=== PATIENT | male | born 1930 | race Caucasian/White ===

== ENCOUNTER 2019-02-18 11:19 | Inpatient (IN) ==
[2019-02-18] MEDS ORDERED: ZOFRAN ODT PO ONE (11:49)
--- NOTE | 2019-02-18 12:35 | Diag Imaging Result Doc PS360 ---
CHEST-2 VIEWS - 02/18/2019 INDICATION: sob COMPARISON: 01/03/2016 FINDINGS: Stable sternotomy wires. Heart size and pulmonary vascularity is top normal. There are some ill-defined infiltrate in the right upper lobe and lingula. There is COPD. IMPRESSION: Bilateral bronchopneumonia. COPD. Electronically signed by Donald Brennan 02/18/2019 12:33 PM
[2019-02-18] MEDS ORDERED: NS 1,000 ML IV ONE (12:38)
[2019-02-18] MEDS ORDERED: ROCEPHIN 1 GM in NS 50 ML IV ONE (12:39)
[2019-02-18] MEDS ORDERED: ZITHROMAX 500 MG/NS 500 MG/250 ML IVPB IV ONE (12:39)
[2019-02-18] MEDS ORDERED: CARDIZEM IV ONE (12:41)
[2019-02-18 13:44] LABS: HEMOGLOBIN 12.8 g/dL (14.0-18.0); RBC 4.16 XMIL (4.7-6.1); WBC 12.07 X1000 (4.8-10.8)
[2019-02-18 13:45] LABS: BASO# 0.02 X1000 (0.0-0.2); BASO% 0.2 % (0.0-0.8); EOS# 0.01 X1000 (0.0-0.7); EOS% 0.1 % (0.0-10.0); HEMATOCRIT 37.9 % (42.0-52.0); IMM GRAN# 0.03 X1000 (0.0-0.04); IMM GRAN% 0.2 % (0.0-0.5); LYMPH# 0.75 X1000 (1.2-3.4); LYMPH% 6.2 % (20.5-51.1); MCH 30.8 PG (27-31); MCHC 33.8 g/dL (33-37); MCV 91.1 FL (81-99); MONO# 1.23 X1000 (0.11-0.59); MONO% 10.2 % (1.7-9.3); MPV 10.7 FL (7.4-10.4); NEUT# 10.03 X1000 (1.4-6.5); NEUT% 83.1 % (42.2-75.2); PLT 156 X1000 (130-400); RDW 14.5 % (11.5-14.5)
[2019-02-18 14:11] LABS: ALB/GLOB RATIO 1.1; ALBUMIN 3.7 g/dL (3.5-5.0); CALCIUM 8.8 mg/dL (8.8-10.2); CREATININE 1.4 mg/dL (0.7-1.2); POTASSIUM 4.6 mmol/L (3.5-5.1); TOTAL BILIRUBIN 1.26 mg/dL (0.20-1.00); TOTAL PROTEIN 7.1 g/dL (6.3-8.3)
--- NOTE | 2019-02-18 14:44 | PROVIDER DOCUMENTATION ---
This chart was entered by Quin Ruiz Scribe, acting as scribe for Kleber Gautam MD. HPI-General Adult - General Chief Complaint: General Adult Stated Complaint: ABD PAIN,VOMITING,COUGH Time Seen by Provider: 02/18/19 11:45 Source: patient Allergies/Adverse Reactions: Patient Allergies Allergy/AdvReac Type Severity Reaction Status Date / Time No Known Allergies Allergy Verified 12/16/15 10:05 Home Medications: Home Medication List Medication Instructions Recorded Confirmed Last Taken Type Levothyroxine [Synthroid] 75 microgm PO DAILY 12/16/15 01/03/16 01/02/16 19:00 History Ranitidine [Zantac] 150 mg PO BID PRN 12/16/15 12/16/15 12/16/15 07:00 History Digoxin [Lanoxin] 125 microgm PO DAILY #30 tablet 12/20/15 01/03/16 01/03/16 07:00 Rx Allopurinol [Zyloprim] 100 mg PO DAILY #0 tablet 01/07/16 Unknown Rx Amoxicillin/Potassium Clav 1 each PO BID #10 tablet 01/07/16 Unknown Rx [Augmentin 875-125 Tablet] Ergocalciferol (Vitamin D2) 50,000 unit PO Q7D #8 capsule 01/07/16 Unknown Rx [Vitamin D] Finasteride [Proscar] 5 mg PO DAILY #30 tablet 01/07/16 Unknown Rx Rivaroxaban [Xarelto] 20 mg PO WSUPPER #30 tablet 01/07/16 Unknown Rx Tamsulosin [Flomax] 0.4 mg PO QHS #0 capsule 01/07/16 Unknown Rx - History of Present Illness -Gen Adult Nature of Presenting Problems: 88yom presents to ED cc nausea, vomiting, cough and doesn't feel well. Pt reports he ate too much late last night and woke up this morning and vomited. Pt also reports he had recent URI and just finished ABT. Pt denies pain. Pt is afrebrile and nontoxic on exam. Location of Pain/Injury: reports: generalized Pain Radiation: reports: no radiation Quality of Pain: reports: aching Onset/Duration: reports: this morning Timing: reports: still present Modifying Factors: improves with: nothing Associated Symptoms: reports: nausea, vomiting, weakness Similar Symptoms Previously?: No Recently seen or treated by another doctor?: Yes (saw PCP 02/13/19) Review of Systems - Adult - REVIEW OF SYSTEMS - ADULT Constitutional: reports: see HPI, fatique. denies: chills, fever Eyes: reports: no symptoms reported Ears, Nose, Mouth & Throat: reports: no symptoms reported Cardiovascular: reports: no symptoms reported Respiratory: reports: see HPI, cough. denies: shortness of breath, wheezing Gastrointestinal: reports: see HPI, nausea, vomiting. denies: abdominal pain, c onstipation, diarrhea Genitourinary: reports: no symptoms reported Musculoskeletal: reports: no symptoms reported Integumentary: reports: no symptoms reported Neurological: reports: no symptoms reported Psychiatric: reports: no symptoms reported Endocrine: reports: no symptoms reported Hematologic/Lymphatic: reports: no symptoms reported Allergic/Immunologic: reports: no symptoms reported All Other Systems: Reviewed and Negative Past History - Adult - PAST MEDICAL HISTORY-ADULT Review of Records: reports: Nursing Assessment Review, Medications Reviewed, Social history reviewed & non-contributory. Major Childhood Illnesses: reports: denies history Cardiovascular: reports: CAD, HTN, hyperlipidemia Respiratory: reports: denies history Gastrointestinal: reports: GERD Obstetrical/Gynecological: reports: denies history Genitourinary: reports: denies history Musculoskeletal: reports: denies history Neurological: reports: denies history Psychiatric: reports: denies history Endocrine/Immune: reports: denies history Other Conditions: reports: denies history - PRIOR SURGERIES/PROCEDURES Surgical/Procedure History: reports: CABG - PRIOR HOSPITALIZATIONS Prior Hospitalizations: reports: none - IMMUNIZATION STATUS Childhood Immunizations: See Nurse Assessment Flu Vaccine: See Nurse Assessment - FAMILY HISTORY Family History: reviewed, not pertinent Physical Exam-General - PHYSICAL EXAM-ADULT Initial Vital Signs Reviewed: Yes - CONSTITUTIONAL General Appearance: appears well, alert, no apparent distress. negative: anxious, combative - EYES Eyes: PERRL/EOMI, pink conjunctivae. negative: meningismus, pale conjunctivae, photophobia - HEAD, EARS, NOSE, MOUTH & THROAT HENMT: normocephalic/atraumatic, moist mucous membranes, normal ENT inspection, hearing deficit. negative: angioedema - NECK Neck: non-tender, full range of motion, supple, normal inspection. negative: C- spine tenderness - RESPIRATORY Respiratory: chest non-tender, lungs clear, normal breath sounds, no pleuratic chest pain, no respiratory distress, no accessory muscle use. negative: crackles, rales, rhonchi, stridor, wheezing - CARDIOVASCULAR Cardiovascular: normal peripheral pulses, regular rate, rhythm, no edema, no gallop, no JVD, no murmur. negative: bradycardia, tachycardia - GASTROINTESTINAL (ABDOMEN) Abdominal Exam: normal bowel sounds, non tender, soft, no organomegaly, no pulsatile mass. negative: distended, guarding, rigid, rebound, tenderness, hernia, mass - LYMPHATIC Lymphatic: no adenopathy. negative: striations - MUSCULOSKELETAL Extremity: normal range of motion, non-tender, normal gait, normal inspection, no pedal edema, no calf tenderness, normal capillary refill, pelvis stable. negative: deformity, swelling - SKIN Integumentary: normal color, normal turgor, warm/dry. 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 negative: facial droop, focal weakness - PSYCHIATRIC Psych/Mental Status: normal mood/affect, normal thought content, normal thought process, oriented x 3. negative: disoriented x 3, anxious, disheveled, depressed affect Progress - PLAN OF CARE/RESULTS Progress/Plan/Lab Results: Vital Signs - 8 hr 02/18/19 11:33 Temperature 99.4 F Pulse Rate 119 H Respiratory Rate 18 Blood Pressure 109/65 O2 Sat by Pulse Oximetry 96 Result Diagrams: 02/18/19 13:25 02/18/19 13:25 - REASSESSMENT Reassessment #1 Time Reassessed: 14:43 Status: improving (SYMPTOMS IMPROVING. NO CHEST PAIN OR SOB IN ER. HR 78 AFIB. DISCUSSED WITH HOSPITALIST WILL ADMIT) - EKG 1 Time of EKG reading by physician:: 12:40 EKG Read and Signed by:: Kleber Gautam EKG Interpretation (*Must complete 3 of following elements*): Abnormal (inferior infarct age undetermined) Rate: 140 Rhythm: Atrial fibrillation w/rvr Interior: left ST Wave: normal 2 Time of EKG reading by physician:: 14:37 EKG Read and Signed by:: Kleber Gautam Rate: 78 Rhythm: atrial fibrillation Interior: left QRS: PVC's ST Wave: non-specific ST changes - XRAY 1 XRAY: Bilateral XRAY Study: Chest Impression: See EMR Report (IMPRESSION: Bilateral bronchopneumonia. COPD. Electronically signed by Donald Brennan 02/18/2019 12:33 PM) Departure - Departure Date of Disposition Decision: 02/18/19 Time of Disposition Decision: 14:42 DIAGNOSIS: Rapid atrial fibrillation Pneumonia Qualifiers: Pneumonia type: due to unspecified organism Laterality: bilateral Disposition: ADMITTED INPATIENT 09 Certified Medical Emergency: Emergent Condition: Fair Additional Freetext Instructions: ED Follow Up Instructions: You have been treated by a care provider in the Emergency Department. These instructions are being provided to you so you can have an understanding of how to care for yourself upon discharge. Upon discharge from the Emergency Department, you are responsible for making arrangements for follow-up care by a physician of your choice. Take all prescribed medications as directed. Return to the Emergency Department immediately for any new or worsening symptoms. You may call the Physician Referral phone number at [phone] to obtain a list of Physicians who are taking new patients. Referrals and Follow-Ups: Kapil Marroquin MD [Primary Care Provider] - - Critical Care Note This patient required my direct & personal management of CC.: No Attestation - Physician/ ROXANN Attestation Patient care was provided by Advanced Practice Provider:: No The physician spent face to face time with patient:: Yes Advanced Practice Provider documentation review:: Supervising physician onsite and consulted in the evaluation and care of this patient. The physician did have a face to face encounter with the patient. This chart was documented by the indicated scribe, (Quin Ruiz Scribe) and accurately reflects the services I performed and decisions made by me, Kleber Gautam MD, as attested by the provider's signature.
[2019-02-18] MEDS ORDERED: TYLENOL PO PRN (15:08)
[2019-02-18] MEDS ORDERED: VITAMIN D PO SCH (15:52)
[2019-02-18] MEDS ORDERED: ZOFRAN IV PRN (15:52)
[2019-02-18] MEDS ORDERED: ZANTAC PO PRN ×2 (15:52→16:15)
[2019-02-18] MEDS ORDERED: DUONEB (A & A) INH SCH ×2 (16:00)
--- NOTE | 2019-02-18 16:24 | EKG Report ---
Test Performed on : 02/18/2019 12:34:01 PM Test Reason : tachy Blood Pressure : / mmHG Vent. Rate : 140 BPM Atrial Rate : 083 BPM P-R Int : 000 ms QRS Dur : 102 ms QT Int : 264 ms P-R-T Axes : 000 -35 032 degrees QTc Int : 403 ms Atrial fibrillation. with rapid ventricular response. Left axis deviation Inferior infarct , age undetermined Abnormal ECG When compared with ECG of 03-JAN-2016 16:17, Vent. rate has increased BY [address] less depressed in Anterior leads Nonspecific T wave abnormality, improved in Inferior leads Nonspecific T wave abnormality, improved in Lateral leads Unconfirmed Result
[2019-02-18] MEDS: LANOXIN PO SCH (16:25)
[2019-02-18] MEDS: NS 1,000 ML IV SCH (16:25)
--- NOTE | 2019-02-18 16:28 | EKG Report ---
Test Performed on : 02/18/2019 2:32:46 PM Test Reason : TACHY Blood Pressure : / mmHG Vent. Rate : 078 BPM Atrial Rate : 078 BPM P-R Int : 000 ms QRS Dur : 104 ms QT Int : 372 ms P-R-T Axes : 000 -30 019 degrees QTc Int : 424 ms Atrial fibrillation. with premature ventricular or aberrantly conducted complexes. Left axis deviation Nonspecific ST abnormality Abnormal ECG When compared with ECG of 18-FEB-2019 12:34, (Unconfirmed) Vent. rate has decreased BY 62 BPM Unconfirmed Result
[2019-02-18] MEDS: DUONEB (A & A) INH SCH ×3 (16:53→22:56)
[2019-02-18] MEDS ORDERED: XARELTO PO SCH (17:00)
[2019-02-18] MEDS ORDERED: COLCRYS PO PRN (17:06)
[2019-02-18] MEDS: MUCOMYST 20% INH SCH (19:26)
[2019-02-18] MEDS: FLOMAX PO SCH ×2 (19:54→20:04)
[2019-02-18] MEDS: LOPRESSOR PO SCH ×2 (19:54→20:04)
--- NOTE | 2019-02-19 01:59 | HISTORY AND PHYSICAL ---
MICROBIOLOGY TECHNOLOGIST: Dr. Kapil Marroquin. CHIEF COMPLAINT: Fatigue. HISTORY OF PRESENT ILLNESS: This is an 88-year-old male who presents to the ER today with past medical history of atrial fibrillation, hypertension, hyperlipidemia, hypothyroidism, iron deficiency anemia, gout, significant history for quadruple bypass surgery at [facility]. The patient states that he started feeling sick about Wednesday and last night he had difficulty eating and when he woke up this morning he did not feel well so he asked his son to bring him to the ER today. 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 The patient presented to the ER today. Heart rate in the 130s, atrial fibrillation with RVR. The patient does have a past medical history of atrial fibrillation. The patient takes home medications for his atrial fibrillation, metoprolol and digoxin. The patient is also on Xarelto for his atrial fibrillation for anticoagulation. The patient denies any chest pain at the present time. States that he is a little short of breath. He has generalized fatigue all over. He denies any cough or any sputum production. The patient was given some IV fluid hydration in the ER. Patient states he is feeling a little bit better. The patient was also given antibiotics in the ER. Chest x-ray done in the ER shows bilateral bronchopneumonia and COPD. Laboratory findings in the ER, white blood cell count is 12.07. Sodium count is a little low at 135, creatinine is 1.4. ProBNP is 6799. Plasma lactate was normal in the ER at 1.70. Heart rate at this present time is 67 and does present to be atrial fibrillation on the monitor but at a controlled rate. The patient was given Cardizem in the ER IV push and this has seemed to control his rate at the time. PAST MEDICAL HISTORY: Atrial fibrillation, hypertension, hyperlipidemia, hypothyroidism, iron deficiency anemia, gout, COPD, coronary artery disease, and hearing loss wears hearing aids. PAST SURGICAL HISTORY: Quadruple bypass surgery at [facility]. FAMILY HISTORY: Son is at the bedside. He does not know much about patient's family history. Patient states his father at a young age but does not know what for. SOCIAL HISTORY: The patient quit smoking 33 years ago. He does drink 1 to 2 beers a night. He denies any drug abuse. ALLERGIES: No known drug allergies. MEDICATIONS: Atorvastatin 10 mg p.o. daily, colchicine 0.6 mg p.o. daily p.r.n., digoxin 125 mcg p.o. daily, ferrous sulfate 325 mg p.o. daily, Proscar 5 mg p.o. daily, folic acid 1 mg 5 tablets p.o. daily, levothyroxine sodium 88 mcg daily, losartan potassium 25 mg p.o. daily, metoprolol 50 mg 1/2 tablet p.o. b.i.d., Zantac 150 mg p.o. daily, Xarelto 15 mg p.o. with supper, Flomax 0.4 mg p.o. daily. LABORATORIES AND DIAGNOSTICS: White blood cell count 12.07, hemoglobin 12.8, hematocrit 37.9, platelet count 156,000. Sodium 135, potassium 4.6, carbon dioxide 19, BUN is 20, creatinine is 1.4, estimated GFR is 48, glucose is 128, calcium is 8.8, total bilirubin is 1.26, AST 23, ALT is 13, alkaline phosphatase is 120. Troponin is less than 0.01. ProBNP is 6799. Plasma lactate is 1.7. TSH is 0.17. Chest x-ray shows bilateral bronchopneumonia and COPD. EKG done at 12:30 in the ER shows atrial fibrillation with RVR with a rate of 140 beats per minute. EKG done 2 hours later shows atrial fibrillation with aberrantly conducted complexes. The rate is now 78. REVIEW OF SYSTEMS: A 12 point review of systems has been performed and all are negative except what is stated above in HPI. PHYSICAL EXAMINATION: VITAL SIGNS: Temperature 98.0 degrees, pulse rate 67, respiratory rate 20, blood pressure 132/91, O2 saturation is 93% on 3 L nasal cannula. Weight 135 pounds. Height 5 feet 7 inches. GENERAL: This is an 88-year-old male who is lying in the ER stretcher. He is in no acute distress at present time. Patient is very hard of hearing and does not have hearing aids in at this time. HEENT: Atraumatic, normocephalic. Pupils are equal, round, reactive to light. Mucous membranes are dry. NECK: Supple. No lymphadenopathy. Trachea is midline. No JVD. CARDIOVASCULAR: Irregular rate and rhythm. No murmurs, gallops, or rubs appreciated. S1, S2. Atrial fibrillation noted on the monitor. RESPIRATORY: Lung sounds are clear with equal chest excursion. Respirations are nonlabored with no accessory muscle usage. GASTROINTESTINAL: Abdomen is flat, nontender, nondistended. Bowel sounds are present x4. NEUROLOGIC: Cranial nerves 2-12 intact. The patient is awake, alert, and oriented. Patient is very hard of hearing, but able to answer all questions appropriately and follow all commands. MUSCULOSKELETAL: Full distal strength noted. No abnormality of gait or deformities. EXTREMITIES: No clubbing. No cyanosis. No edema. DP and PT pulses are present and palpable. SKIN: Warm, dry, and intact with no rashes, bruises, or diaphoresis noted. ASSESSMENT AND PLAN: 1. Atrial fibrillation with rapid ventricular response. His rate is controlled at the present time. We will admit this patient to the CIC unit. We will place him on threat monitoring analyst. We will restart all of his home medications including his anticoagulation. 2. Pneumonia and COPD. We will start this patient on IV fluid hydration and start this patient on antibiotics of Rocephin and azithromycin. Patient has already received a dose in the ER. We will resume these medications. We will repeat his chest x-ray in the morning. I have also started him on breathing treatments every 4 hours. 3. Hypertension. We have placed this patient back on his home medications for his hypertension. 4. Hyperlipidemia. We placed him back on his cholesterol medications. 5. Hypothyroidism. We will place this patient back on his Synthroid. 6. Iron deficiency anemia. Place him back on his home medications for his anemia. 7. Gout. I will place this patient back on his gout medication. We will admit this patient to the CIC unit and recheck labs in the morning. Recheck chest x- ray in the morning and as noted above I have started him on IV antibiotics, breathing treatments, and restarted his atrial fibrillation medications per his home doses. Dictated by CARLOTTA Cueto for Ari Amor MD Addendum: Patient seen and examined by myself. Agree with CARLOTAT note. It reflects my assessment and plan. Patient is being admitted to hospital for bilateral pneumonia that has most likely triggered his chronic atrial fibrillation to have a RVR. Will start Rocephin and Zithromax, Duoneb and will place him on his metoprolol. If cardizem drip needed it will be provided. Will monitor patient closely. cc: Ari Amor MD [facility] N[facility]SING FACILITYPriscilla
[2019-02-19] MEDS: DUONEB (A & A) INH SCH ×6 (03:07→23:15)
[2019-02-19] MEDS: NS 1,000 ML IV SCH (03:34)
[2019-02-19] MEDS: SYNTHROID PO SCH ×2 (05:55→06:04)
[2019-02-19 05:57] LABS: BASO# 0.02 X1000 (0.0-0.2); BASO% 0.2 % (0.0-0.8); EOS# 0.01 X1000 (0.0-0.7); EOS% 0.1 % (0.0-10.0); HEMATOCRIT 31.4 % (42.0-52.0); HEMOGLOBIN 10.4 g/dL (14.0-18.0); IMM GRAN# 0.02 X1000 (0.0-0.04); IMM GRAN% 0.2 % (0.0-0.5); LYMPH# 1.23 X1000 (1.2-3.4); LYMPH% 14.8 % (20.5-51.1); MCH 30.9 PG (27-31); MCHC 33.1 g/dL (33-37); MCV 93.2 FL (81-99); MONO# 0.83 X1000 (0.11-0.59); MPV 10.2 FL (7.4-10.4); NEUT# 6.19 X1000 (1.4-6.5); NEUT% 74.7 % (42.2-75.2); PLT 130 X1000 (130-400); RBC 3.37 XMIL (4.7-6.1); RDW 14.8 % (11.5-14.5)
[2019-02-19] MEDS ORDERED: SYNTHROID PO SCH (07:00)
--- NOTE | 2019-02-19 07:29 | Diag Imaging Result Doc PS360 ---
CHEST-PORTABLE - 02/19/2019 INDICATION: Pneumonia COMPARISON: 02/18/2019 FINDINGS: Lung volumes are much lower. There is significant worsening ill-defined infiltrate in the right midlung and lung base, mainly in the right lower lobe. Stable patchy infiltrate in the left lung base. Stable cardiomegaly. No large pleural effusion. IMPRESSION: Much lower lung volumes. Worsening bibasilar infiltrates right greater than left concerning for pneumonia or aspiration. Electronically signed by Donald Brennan 02/19/2019 7:26 AM
[2019-02-19 07:31] LABS: AGAP 13; BUN 24 mg/dL (8-22); CALCIUM 7.4 mg/dL (8.8-10.2); CHLORIDE 109 mmol/L (98-107); COSMO 285; CREATININE 1.3 mg/dL (0.7-1.2); GLUCOSE 124 mg/dL (70-104); SODIUM 140 mmol/L (136-145); TCO2 18 mmol/L (25-35)
[2019-02-19] MEDS: MUCOMYST 20% INH SCH ×2 (07:41→19:44)
[2019-02-19] MEDS: LANOXIN PO SCH (08:34)
[2019-02-19] MEDS: LOPRESSOR PO SCH ×2 (08:34→20:38)
[2019-02-19] MEDS: PROSCAR PO SCH (08:34)
[2019-02-19] MEDS: FOLIC ACID PO SCH (08:34)
[2019-02-19] MEDS: COZAAR PO SCH (08:35)
[2019-02-19] MEDS: FERROUS SULFATE PO SCH (08:35)
[2019-02-19] MEDS: ZYLOPRIM PO SCH (08:35)
[2019-02-19] MEDS ORDERED: CARDIZEM 125 MG/D5W 125 MG/125 ML IVPB IV SCH (08:45)
--- NOTE | 2019-02-19 08:51 | PROGRESS NOTE ---
DATE: 02/19/2019 SUBJECTIVE: The patient reports breathing better. According to nursing staff, heart rate has been well controlled, and almost all the time less than 100, according to telemetry. OBJECTIVE: Vital Signs: Temperature 98.0 degrees, heart rate 84, respiratory rate 18, blood pressure 116/53, O2 saturation 100% on 2 L nasal cannula. General: This is an 88-year-old male, lying in bed in no acute distress. Cardiovascular: S1, S2 heard. Irregularly irregular, but no murmurs, gallops, or rubs noted. Respiratory: Decreased breath sounds globally, with minimal coarse breath sounds noted in both pulmonary bases. The patient is not using any accessory muscles or having work of breathing. Abdomen: Soft. Nontender to palpation. Bowel sounds present. No organomegaly. Extremities: No clubbing, cyanosis, or edema. Peripheral pulses present in both legs. Neurological: The patient is alert and oriented x3. Moves 4 extremities. LABORATORY DATA: White cell count 8.3, hemoglobin 10.4, hematocrit 31.4, platelets 130,000. BMP reveals creatinine 1.3, with glucose 124, calcium 7.4. TSH 0.17. ASSESSMENT AND PLAN: 1. Atrial fibrillation with rapid ventricular response. That has been well controlled. I think the pneumonia has triggered his uncontrolled heart rate, but now is much better. We have restarted his home medication, including his anticoagulation. 2. Bilateral pneumonia. The patient is on Rocephin and azithromycin, day #2 for both antibiotics. I think the patient is getting much better. X-ray this morning just confirmed this finding. He is also on DuoNeb every 4 hours scheduled. 3. Hypothyroidism. We have checked TSH, and we found that it is low, so we are going to decrease the dose of Synthroid from 88 to 50 mcg by mouth daily. 4. Hyperlipidemia. Will continue with home medications. 5. Hypertension. Blood pressure is under control. Will continue with the same management. 6. Iron-deficiency anemia. The patient is on iron pills. Will restart those. 7. History of gout. The patient has been placed back to his gout medication. 8. Disposition. I think this patient is much more stable. The reason why he was sent to [facility] was the elevated heart rate, but has been controlled, just controlling the infection. We have restarted all his home medications for that condition, so, at this point, I think he can be transferred to a regular room. Addendum: I was informed patient started to have heart rate in the range of 180 and 190. Cardizem drip will be started. Will monitor patient closely. cc: Ari Amor MD MTDD
--- NOTE | 2019-02-19 11:09 | EKG Report ---
Test Performed on : 02/19/2019 08:40:20 AM Test Reason : Increased HR Blood Pressure : / mmHG Vent. Rate : 173 BPM Atrial Rate : 093 BPM P-R Int : 000 ms QRS Dur : 156 ms QT Int : 256 ms P-R-T Axes : 000 -30 080 degrees QTc Int : 434 ms Atrial fibrillation. with rapid ventricular response. Left axis deviation Nonspecific intraventricular block Nonspecific ST and T wave abnormality Abnormal ECG When compared with ECG of 18-FEB-2019 14:32, (Unconfirmed) Vent. rate has increased BY 95 BPM QRS duration has increased Nonspecific T wave abnormality now evident in Lateral leads Confirmed by Teo Armijo MD ([id number]) on 02/19/2019 9:21:59 PM
[2019-02-19] MEDS ORDERED: LOPRESSOR PO ONE (12:59)
--- NOTE | 2019-02-19 14:24 | CONSULTATION ---
DATE OF CONSULTATION: 02/19/2019 IMPRESSION: 1. Chronic atrial fibrillation with increased ventricular rate response in the setting of acute noncardiac illness. 2. Suspected pneumonia/pneumonitis. 3. Atherosclerotic coronary disease with previous coronary bypass surgery. The patient continues without angina. 4. Hypertension. 5. Hyperlipidemia. RECOMMENDATIONS: 1. Gently increase metoprolol. 2. Check digoxin level and adjust. 3. Continue intravenous Cardizem until heart rate better controlled with adjustments. 4. Treat for pneumonia/pneumonitis as you are doing. HISTORY: This 88-year-old white male with past history of previous coronary bypass surgery, chronic atrial fibrillation, hypertension, hyperlipidemia, and COPD, was admitted with cough and chest congestion. He was found to have atrial fibrillation with rapid ventricular rate despite current regimen for rate control. He was also found to have abnormal chest x- ray suggesting bilateral pneumonia. Because of elevated heart rate, Cardiology was consulted. He has been started on intravenous Cardizem to improve rate control, and this seems to be working. He relates having an illness with minimally productive cough and sinus congestion a few weeks ago. This seemed to have transiently improved, but then has re-emerged over the week prior to surgery. He had a late evening meal at [employer], and relates that after this, he started having some nausea and vomiting because he ate too late at night. Presumably, this is related to gastroesophageal reflux. He started feeling fatigue, and continued with minimally productive cough. He came to the emergency room for evaluation, where chest x-ray suggested bilateral pneumonia, and ECG demonstrated atrial fibrillation with rapid ventricular rate. There has been no angina. PAST MEDICAL HISTORY: 1. Chronic atrial fibrillation. 2. Atherosclerotic coronary disease with previous coronary bypass surgery. 3. Hypertension. 4. Hyperlipidemia. 5. Hypothyroidism. 6. Iron-deficiency anemia. 7. Gout. 8. COPD. 9. Hearing loss. PAST SURGICAL HISTORY: Includes previous coronary bypass surgery. ALLERGIES: No known drug allergies. MEDICATIONS PRIOR TO ADMISSION: As listed. SOCIAL HISTORY: He has history of previous cigarette use, but discontinued this approximately 33 years ago. He drinks 1 to 2 beers nightly. FAMILY HISTORY: Negative for premature coronary disease. REVIEW OF SYSTEMS: Pulmonary: Noncontributory beyond history of present illness. Gastrointestinal: Noncontributory beyond history of present illness. Constitutional: Negative for fever. The remainder of review of systems is negative/noncontributory beyond history of present illness with 14 total systems reviewed. PHYSICAL EXAMINATION: General: This is a pleasant, elderly, white male in no distress. Vital Signs: Blood pressure 120/55, heart rate 78 and irregular with ECG monitor showing atrial fibrillation with controlled rate. Patient currently on intravenous Cardizem. Oxygen saturation 98% on room air. HEENT: Extraocular movements appear intact. Mucous membranes are moist. Neck: Supple. Jugular distention is evident, suggesting elevated central venous pressure. Chest: Fairly clear to auscultation bilaterally. Cardiac: Irregular rate and rhythm without appreciable murmur or gallop. Abdomen: Soft. Bowel sounds are normal. Extremities: Without edema. Neurologic: He is alert and fully oriented. Speech is fluent. He moves all 4 extremities equally well. Skin: Warm dry. Psychiatric: Mood is appropriate. DIAGNOSTIC DATA: A 12-lead EKG demonstrates atrial fibrillation with rapid ventricular rate, left axis deviation (nonspecific), interventricular conduction abnormality, nonspecific ST-T wave abnormality demonstrated, possibly related to heart rate. LABORATORY DATA: Includes a white blood cell count of 8.3, hematocrit 31.4, hemoglobin 10.4, platelet count 130,000. Sodium 140, potassium 4.0, chloride 109, carbon dioxide 18, BUN 24, creatinine 1.3, glucose 124. Troponin T less than 0.01. TSH 0.17. cc: Jarvis Collins MD MTDD
[2019-02-19] MEDS: ROCEPHIN 1 GM in NS 50 ML IV SCH (14:43)
[2019-02-19] MEDS: ZITHROMAX 500 MG/NS 500 MG/250 ML IVPB IV SCH (16:10)
[2019-02-19] MEDS: XARELTO PO SCH (17:34)
[2019-02-19] MEDS: LIPITOR PO SCH (20:38)
[2019-02-19] MEDS: FLOMAX PO SCH (20:38)
[2019-02-20] MEDS: DUONEB (A & A) INH SCH ×6 (03:09→23:39)
[2019-02-20] MEDS: SYNTHROID PO SCH (06:03)
[2019-02-20 06:04] LABS: BASO# 0.03 X1000 (0.0-0.2); BASO% 0.4 % (0.0-0.8); EOS# 0.15 X1000 (0.0-0.7); EOS% 1.9 % (0.0-10.0); HEMATOCRIT 32.7 % (42.0-52.0); HEMOGLOBIN 10.8 g/dL (14.0-18.0); IMM GRAN# 0.03 X1000 (0.0-0.04); IMM GRAN% 0.4 % (0.0-0.5); LYMPH# 1.31 X1000 (1.2-3.4); LYMPH% 16.4 % (20.5-51.1); MCH 30.9 PG (27-31); MCV 93.4 FL (81-99); MONO# 0.88 X1000 (0.11-0.59); MPV 10.8 FL (7.4-10.4); NEUT# 5.58 X1000 (1.4-6.5); NEUT% 69.9 % (42.2-75.2); PLT 147 X1000 (130-400); RDW 14.9 % (11.5-14.5); WBC 7.98 X1000 (4.8-10.8)
[2019-02-20 06:26] LABS: CREATININE 1.5 mg/dL (0.7-1.2); POTASSIUM 5.2 mmol/L (3.5-5.1)
--- NOTE | 2019-02-20 07:25 | Diag Imaging Result Doc PS360 ---
EXAM: CHEST-2 VIEWS 02/20/2019 HISTORY: pulmonary edema TECHNIQUE: PA and lateral chest COMMENT: There is alveolar opacity present in the right middle and lower lobes, the lingula and the left lower lobe. The opacities are slightly worse than on 02/19/2019 despite the relatively better inspiration. There is also apparent loculated fluid in the upper part of the left major fissure. IMPRESSION: Worsened pulmonary edema and/or pneumonia with loculated left pleural effusion. Electronically signed by Valentín Fernandez 02/20/2019 7:22 AM
[2019-02-20] MEDS: MUCOMYST 20% INH SCH ×2 (07:26→19:45)
[2019-02-20] MEDS: LANOXIN PO SCH (08:10)
[2019-02-20] MEDS: FOLIC ACID PO SCH (08:10)
[2019-02-20] MEDS: LOPRESSOR PO SCH ×2 (08:11→21:57)
[2019-02-20] MEDS: COZAAR PO SCH (08:11)
[2019-02-20] MEDS: FERROUS SULFATE PO SCH (08:11)
[2019-02-20] MEDS: ZYLOPRIM PO SCH (08:11)
[2019-02-20] MEDS: LIPITOR PO SCH (08:11)
[2019-02-20] MEDS: PROSCAR PO SCH (08:11)
--- NOTE | 2019-02-20 09:18 | PROGRESS NOTE ---
DATE: 02/20/2019 SUBJECTIVE: The patient reports feeling fine. Reported mile sensation of palpitation on and off last night according to nursing staff. Patient has been started on Cardizem drip in the afternoon but was stopped a few hours later. Cardiology also has increased the dose of metoprolol and by now his heart rate is going up and down when he moves or when he have a breathing treatment. That can go up to 160 and 170. OBJECTIVE: Vital Signs: Temperature 98.2 degrees, heart rate 119, respiratory rate 19, blood pressure 127/60, O2 saturation 96% on room air. General Examination: This is an 88-year-old male, lying in bed, in no acute distress. HEENT: Head is normocephalic, atraumatic. Neck: No JVD noted. No carotid bruits. No lymphadenopathy. No thyromegaly. Cardiovascular: S1, S2 heard. No murmurs, gallops, or rubs. Regular rate and rhythm. Respiratory: Coarse breath sounds noted in both pulmonary bases. Patient is not using any accessory muscles or having work of breathing. Abdomen: Soft a little distended. No organomegaly noted. Bowel sounds present. Extremities: No clubbing, cyanosis, or edema. Peripheral pulses present in both legs. Neurological: Patient is alert, oriented x3. Moves 4 extremities. LABORATORY DATA: White cell count 7.98, hemoglobin 10.8, hematocrit 32.7 platelets 147,000. BMP remarkable for creatinine 1.5 and potassium 5.2. Digoxin level is normal. ASSESSMENT AND PLAN: 1. Chronic atrial fibrillation with rapid ventricular response. I think that has been triggered because of this bilateral pneumonia. He has been on Cardizem drip yesterday. Heart rate is erratic in the range of 110 and 160. It gets worse when patient moves and when he received breathing treatments. At this point, we will continue to monitor this patient. Continue with oral medications to control heart rate. Also, he is on anticoagulation. We will continue to monitor. We will restart Cardizem drip if needed. 2. Bilateral pneumonia. Patient is on Rocephin and azithromycin, day #3 for both antibiotics. We have checked an x-ray today which basically reveals worsening pulmonary edema or pneumonia with loculated left pleural effusion. In that regard, I prefer to order a CT of the thorax without contrast. We will see what it shows. 3. Hypothyroidism. Synthroid has been decreased considering that his TSH has been found low. 4. Hyperlipidemia. We will continue home medications. 5. Hypertension. Blood pressure is under control. We will continue with same management. 6. Iron deficiency anemia. Patient is on iron tablets. We will continue with those. 7. History of gout. We will continue home medications. DISPOSITION: This patient continues to have an erratic heart rate that varies between 100 and 160. At this point. We will continue with current management. I think once his infection is better controlled then his heart will be more stable. In any case it looks like this patient have left loculated pleural effusion. We will check a CT of the chest to see and confirm the diagnosis and we may need to switch antibiotics. cc: Ari Amor MD
--- NOTE | 2019-02-20 09:53 | ECHO REPORT ---
ORDER DATE: 02/18/2019 MEASUREMENTS: Septal thickness 1.1, posterior wall thickness 0.6, left ventricular internal diameter in diastole 4.3, left ventricular internal diameter in systole 3.4, aortic root 3.1, left atrium 4.2. SUMMARY: 1. Fair quality study. 2. Aortic valve is trileaflet and opens normally on 2-dimensional images. Peak gradient across the aortic valve is less than 10 mmHg. Mild mitral annular calcification is demonstrated with mild posteriorly directed mitral regurgitation. Tricuspid and pulmonic valves are without evidence of structural abnormality with [id number] tricuspid regurgitation. The estimated systolic PA pressure by Doppler is 60 to 65 mmHg, suggesting [id number] pulmonary hypertension. The aortic root is normal in size. 3. Normal left ventricular dimensions demonstrated. Estimated left ventricular ejection fraction is approximately 40%. There is akinesis and thinning of the basal and mid inferolateral wall of the left ventricle. Left atrium is mildly enlarged. The right atrium and right ventricle are normal in size with grossly preserved right ventricular systolic function. The left atrium is moderately enlarged on 2-dimensional images, while the right atrium appears mildly enlarged. The right ventricle is normal in size with grossly preserved right ventricular systolic function. 4. No pericardial effusion. 5. Appearance of the inferior vena cava suggests elevated central venous pressure. 6. Atrial fibrillation during study. cc: MD Ari Sue MD
--- NOTE | 2019-02-20 10:28 | Diag Imaging Result Doc PS360 ---
EXAM: CT THORAX W/O CONTRAST INDICATION: left loculated pleural effusion TECHNIQUE: This exam was performed using automated exposure control, adjustment of mA or kV according to patient size, and/or use of iterative reconstruction technique. COMPARISON: CTA chest dated 12/16/2015 FINDINGS: There is moderate to advanced pulmonary emphysema. There is patchy airspace infiltrate involving the right upper lobe, right middle lobe, and right lower lobe consistent with pneumonia. There is milder infiltrate on the left, mainly at the left lung base and the left lower lobe and the lingula. There is a also probably a component of atelectasis at both lung bases. There are bilateral small pleural fluid collections. The collection on the left is at least partially loculated with loculated fluid tracking into the fissure and at the posterior aspect of the left lung posterior to the upper portion of the left lower lobe. The heart is mildly prominent but stable. There are CABG changes. There are a few calcified mediastinal lymph nodes suggesting prior granulomatous disease. There are other somewhat prominent noncalcified lymph nodes that are probably reactive. Limited views of the upper abdomen are essentially unremarkable. IMPRESSION: 1.Pulmonary emphysema. 2.Bilateral multilobar pneumonia, worse on the right. 3.Bilateral small pleural effusions with some degree of loculation on the left. 4.Mild mediastinal lymphadenopathy that is probably reactive. Electronically signed by Aaron Angel 02/20/2019 10:26 AM
[2019-02-20] MEDS: ROCEPHIN 1 GM in NS 50 ML IV SCH (15:49)
[2019-02-20] MEDS: ZITHROMAX 500 MG/NS 500 MG/250 ML IVPB IV SCH (15:49)
[2019-02-20] MEDS: XARELTO PO SCH (18:12)
[2019-02-20] MEDS ORDERED: CARDIZEM CD PO SCH (18:30)
--- NOTE | 2019-02-20 18:35 | CARDIOLOGY PROGRESS NOTE ---
DATE: 02/20/2019 SUBJECTIVE: Patient denies chest discomfort or shortness of breath. He still has some tendency for tachycardia despite recent increase metoprolol. OBJECTIVE: Blood pressure 144/93, heart rate 120 and irregular with ECG monitor showing atrial fibrillation, oxygen saturation 97% on room air. Chest is fairly clear to auscultation. Cardiac exam reveals an irregular rate and rhythm without appreciable murmur, rub, or gallop. There is no evidence of peripheral edema. DIAGNOSTIC STUDIES: Laboratory data includes a white blood cell count 7.9, hematocrit 32.7 hemoglobin 10.8 platelet count 147,000. Sodium 141, potassium 5.2, chloride 110, carbon dioxide 19, BUN 24, creatinine 1.5, glucose 99. Echocardiography demonstrates moderate to severe tricuspid regurgitation with estimated systolic PA pressure of 60 to 65 mmHg suggesting moderate to severe pulmonary hypertension, estimated left ventricular ejection fraction of 40%, akinesis and thinning of the basal and mid inferolateral wall left ventricle consistent with previous infarct. IMPRESSION: 1. Chronic atrial fibrillation with increased ventricular rate response in setting of acute noncardiac illness with suspected pneumonia. Heart rate remains elevated despite increase in metoprolol. 2. Atherosclerotic coronary disease with previous myocardial infarction and previous coronary artery bypass surgery. Estimated left ventricular ejection fraction 40%. Patient continues without angina. 3. Hypertension. 4. Hyperlipidemia. RECOMMENDATIONS: 1. Continue increased dose of metoprolol. 2. Add low-dose long-acting diltiazem. cc: Jarvis Collins MD
[2019-02-20 20:10] LABS: URINE SOURCE CATH
[2019-02-20 20:18] LABS: BILIRUBIN URINE NEGATIVE (NEGATIVE); BLOOD URINE TRACE (NEGATIVE); COLOR YELLOW; GLUCOSE URINE NEGATIVE (NEGATIVE); KETONE URINE NEGATIVE (NEGATIVE); LEUKOCYTES URINE NEGATIVE (NEGATIVE); NITRITE URINE NEGATIVE (NEGATIVE); PH URINE 6.5; PROTEIN URINE 30 mg/dL (NEGATIVE); SP GRAVITY URINE 1.014; TURBIDITY URINE CLEAR (CLEAR); UROBILINOGEN URINE NORMAL (NORMAL)
[2019-02-20 20:20] LABS: UR EPITHELIAL CELLS <10 /HPF (<10); URINE BACTERIA NEGATIVE /HPF; URINE RBC <10 /HPF (<10); URINE WBC <10 /HPF (<10)
[2019-02-20] MEDS: FLOMAX PO SCH (21:57)
[2019-02-20] MEDS: MIRALAX PO SCH (21:58)
[2019-02-20] MEDS: CARDIZEM CD PO SCH (21:58)
[2019-02-21] MEDS: DUONEB (A & A) INH SCH ×6 (03:36→23:14)
[2019-02-21 05:39] LABS: BASO# 0.03 X1000 (0.0-0.2); BASO% 0.4 % (0.0-0.8); EOS# 0.13 X1000 (0.0-0.7); EOS% 1.9 % (0.0-10.0); HEMATOCRIT 31.3 % (42.0-52.0); HEMOGLOBIN 10.3 g/dL (14.0-18.0); IMM GRAN# 0.09 X1000 (0.0-0.04); IMM GRAN% 1.3 % (0.0-0.5); LYMPH# 1.31 X1000 (1.2-3.4); LYMPH% 18.8 % (20.5-51.1); MCH 30.5 PG (27-31); MCHC 32.9 g/dL (33-37); MCV 92.6 FL (81-99); MONO% 10.1 % (1.7-9.3); MPV 10.5 FL (7.4-10.4); NEUT% 67.5 % (42.2-75.2); PLT 159 X1000 (130-400); RBC 3.38 XMIL (4.7-6.1); RDW 14.6 % (11.5-14.5); WBC 6.96 X1000 (4.8-10.8)
[2019-02-21] MEDS: SYNTHROID PO SCH (06:04)
[2019-02-21 06:17] LABS: CALCIUM 7.7 mg/dL (8.8-10.2); CREATININE 1.2 mg/dL (0.7-1.2); POTASSIUM 4.6 mmol/L (3.5-5.1)
[2019-02-21] MEDS ORDERED: VANCOMYCIN IV PER PHARMACY MISC SCH (08:00)
[2019-02-21] MEDS: MUCOMYST 20% INH SCH ×2 (08:31→19:24)
[2019-02-21] MEDS: MIRALAX PO SCH ×2 (09:00→20:52)
[2019-02-21] MEDS: MAXIPIME 1 GM in NS 50 ML IV SCH ×2 (09:00→20:48)
[2019-02-21] MEDS: COZAAR PO SCH (09:01)
[2019-02-21] MEDS: LOPRESSOR PO SCH ×2 (09:01→20:51)
[2019-02-21] MEDS: FOLIC ACID PO SCH (09:01)
[2019-02-21] MEDS: LANOXIN PO SCH (09:01)
[2019-02-21] MEDS: PROSCAR PO SCH (09:01)
[2019-02-21] MEDS: ZYLOPRIM PO SCH (09:01)
[2019-02-21] MEDS: FERROUS SULFATE PO SCH (09:01)
[2019-02-21] MEDS: LIPITOR PO SCH (09:01)
[2019-02-21] MEDS ORDERED: VANCOMYCIN 1.5 GM in NS 250 ML IV ONE (10:00)
--- NOTE | 2019-02-21 10:09 | PROGRESS NOTE ---
DATE: 02/21/2019 SUBJECTIVE: The patient reports feeling fine, breathing better, able to walk around. No palpitations noted. OBJECTIVE: Vital Signs: Temperature 97.9 degrees, heart rate 87, respiratory rate 16, blood pressure 141/68, O2 saturation 96% on room air. General: This is an 88-year-old male, lying in bed in no acute distress. Cardiovascular: S1, S2 heard. No murmurs, gallops, or rubs. Regular rate and rhythm. Respiratory: Coarse breath sounds noted in both pulmonary bases. Patient not using any accessory muscles or having work of breathing. Abdomen: Soft, a little bit distended. Nontender to palpation. Bowel sounds present. No organomegaly. Extremities: No clubbing, cyanosis, or edema. Peripheral pulses present in both legs. Neurological: The patient is alert and oriented x3. Moves all 4 extremities. LABORATORY DATA: White cell count 6.96, hemoglobin 10.3, hematocrit 31.3, platelets 159,000. The BMP reveals normal creatinine with calcium 7.7. ASSESSMENT AND PLAN: 1. Bilateral multilobar pneumonia. This is what we found out on the CT of the chest. The patient clinically is doing fine. Considering this infection, would prefer to go ahead and start broad-spectrum antibiotics, in this case vancomycin and cefepime. Will continue with breathing treatments as well. 2. Atrial fibrillation with rapid ventricular response. Currently, this patient is on Cardizem CD 120 mg by mouth daily, metoprolol 100 mg by mouth twice daily, and also digoxin. I think that rapid ventricular response has been triggered by his infection, but in this case, it is bilateral pneumonia, but it is getting much better. At this point, will continue with the same management. Cardiology is also following this patient. 3. Hypothyroidism. Will continue with the same dose of Synthroid. As we mentioned before, we need to decrease the doses of that considering that TSH has been found low. 4. Hyperlipidemia. Will continue home medications. 5. Iron-deficiency anemia. Will continue with iron tablets. 6. Hypertension. Blood pressure is under control. Will continue with the same medication. 7. Disposition. At this point, will continue to monitor this patient closely here in the [facility]. If heart rate is better controlled tomorrow, will transfer him out of the [facility]. cc: Ari Amor MD
--- NOTE | 2019-02-21 16:46 | PROGRESS NOTE ---
DATE: 02/21/2019 SUBJECTIVE: Patient continues without chest discomfort or shortness of breath. He reports feeling progressively better. OBJECTIVE: Vital signs: Blood pressure 122/46, heart rate 60 and regular, oxygen saturation 97% on room air. Neck: There is no significant jugular venous distention. Chest: Clear to auscultation. Cardiac Exam: Reveals an irregular rate and rhythm without appreciable murmur or gallop. There is no evidence of peripheral edema. LABORATORY DATA: Includes a white blood cell count of 6.96, hematocrit 31.3, hemoglobin 10.3, platelet count 159,000. Sodium 141, potassium 4.6, chloride 112, BUN 24, creatinine 1.2, glucose 94. IMPRESSIONS: 1. Chronic atrial fibrillation. Heart rate better controlled. 2. Currently admitted with suspected pneumonia. Patient appears to be clinically improving. 3. Atherosclerotic coronary disease with previous myocardial infarction, previous coronary bypass surgery, and ischemic cardiomyopathy with a left ventricular ejection fraction of 40%. Patient continues without angina and manifests no signs of congestive heart failure. 4. Hypertension. 5. Hyperlipidemia. RECOMMENDATIONS: 1. Reduce metoprolol to 50 mg p.o. b.i.d. and continue low-dose long-acting diltiazem as well as digoxin. 2. As patient mobilizes, further adjustments may be necessary. cc: Jarvis Collins MD
[2019-02-21] MEDS: XARELTO PO SCH (17:39)
[2019-02-21] MEDS: CARDIZEM CD PO SCH (20:51)
[2019-02-21] MEDS: FLOMAX PO SCH (20:51)
[2019-02-22] MEDS: DUONEB (A & A) INH SCH ×6 (03:40→22:44)
[2019-02-22] MEDS: SYNTHROID PO SCH (06:08)
[2019-02-22 06:17] LABS: BASO# 0.05 X1000 (0.0-0.2); BASO% 0.7 % (0.0-0.8); EOS# 0.21 X1000 (0.0-0.7); EOS% 3.1 % (0.0-10.0); HEMATOCRIT 31.7 % (42.0-52.0); HEMOGLOBIN 10.6 g/dL (14.0-18.0); IMM GRAN# 0.19 X1000 (0.0-0.04); IMM GRAN% 2.8 % (0.0-0.5); LYMPH# 1.26 X1000 (1.2-3.4); LYMPH% 18.5 % (20.5-51.1); MCH 30.9 PG (27-31); MCHC 33.4 g/dL (33-37); MCV 92.4 FL (81-99); MONO# 0.83 X1000 (0.11-0.59); MONO% 12.2 % (1.7-9.3); MPV 10.3 FL (7.4-10.4); NEUT# 4.26 X1000 (1.4-6.5); NEUT% 62.7 % (42.2-75.2); PLT 196 X1000 (130-400); RBC 3.43 XMIL (4.7-6.1); RDW 14.4 % (11.5-14.5)
[2019-02-22 06:44] LABS: ALBUMIN 2.8 g/dL (3.5-5.0); CALCIUM 8.6 mg/dL (8.8-10.2); CREATININE 1.3 mg/dL (0.7-1.2); POTASSIUM 4.8 mmol/L (3.5-5.1)
[2019-02-22] MEDS: MUCOMYST 20% INH SCH ×2 (07:44→19:45)
[2019-02-22] MEDS: PROSCAR PO SCH ×2 (08:34→09:30)
[2019-02-22] MEDS: LOPRESSOR PO SCH ×2 (08:34→21:58)
[2019-02-22] MEDS: MAXIPIME 1 GM in NS 50 ML IV SCH ×2 (08:34→21:58)
[2019-02-22] MEDS: LANOXIN PO SCH (08:34)
[2019-02-22] MEDS: LIPITOR PO SCH (08:34)
[2019-02-22] MEDS: FERROUS SULFATE PO SCH (08:34)
[2019-02-22] MEDS: CARDIZEM CD PO SCH (08:35)
[2019-02-22] MEDS: FOLIC ACID PO SCH (08:35)
[2019-02-22] MEDS: COZAAR PO SCH (08:35)
[2019-02-22] MEDS: ZYLOPRIM PO SCH (08:35)
[2019-02-22] MEDS: MIRALAX PO SCH ×2 (09:30→21:58)
--- NOTE | 2019-02-22 11:41 | PROGRESS NOTE ---
DATE: 02/22/2019 SUBJECTIVE: Patient reports feeling fine. Denies any fever, chills, or difficulty in breathing. OBJECTIVE: Vital Signs: Temperature 97.8, heart rate 85, respiratory rate 15, blood pressure 113/54, and O2 saturation 98% on room air. General: This is an 88-year-old male, lying in bed in no acute distress. Cardiovascular: S1, S2 heard. No murmurs, gallops, or rubs. Regular rate and rhythm. Respiratory: Coarse breath sounds noted in both pulmonary bases. Patient not using any accessory muscles or having work of breathing. Abdomen: Soft and nontender to palpation. Bowel sounds present. No organomegaly. Extremities: No clubbing, cyanosis, or edema. Peripheral pulses present in both legs. Neurological: Patient is alert and oriented x3. Moves all 4 extremities. LABORATORY DATA: Reviewed. ASSESSMENT AND PLAN: 1. Bilateral multilobar pneumonia. We will continue with vancomycin and cefepime. 2. Off both antibiotics. We will continue with the same management. 3. Atrial fibrillation with rapid ventricular rate. Currently, this patient's heart rate is well controlled. He is on digoxin, Cardizem CD 120, and metoprolol has been decreased to 50 mg p.o. b.i.d. We will continue with the same management. 4. Hypothyroidism. We will continue with the same doses of Synthroid. His initial doses that he was using at home has been reduced to 50%. Because of the TSH, that has been found low. 5. Hyperlipidemia. We will continue home medications. 6. Iron-deficiency anemia. We will continue with iron tablets. 7. Hypertension. Blood pressure is under control. 8. Disposition. At this point, patient is much better. If he continues to improve tomorrow, he can be discharged. cc: Ari Amor MD
--- NOTE | 2019-02-22 16:52 | CARDIOLOGY PROGRESS NOTE ---
DATE: 02/22/2019 SUBJECTIVE: Patient reports feeling much better. She denies any chest discomfort or shortness of breath on room air. OBJECTIVE: Blood pressure 113/50, heart rate 63, oxygen saturation 96% on room air. There is no significant jugular venous distension. Chest is clear to auscultation bilaterally. Cardiac exam reveals an irregular rate and rhythm without appreciable murmur, rub, or gallop. There is no evidence of peripheral edema. LABORATORY DATA: Includes a white blood cell count 6.8, hematocrit 31.7, hemoglobin 10.6, platelet count 196,000. Sodium 140, potassium 4.8, chloride 111, carbon dioxide 28, BUN 22, creatinine 1.3, glucose 99. IMPRESSION: 1. Chronic atrial fibrillation. Heart rate better controlled on current regimen. 2. Suspected pneumonia. Patient clinically improving. 3. Atherosclerotic coronary artery disease with previous myocardial infarction, previous coronary bypass surgery, and ischemic cardiomyopathy with left ventricular ejection fraction 40%. Patient continues without angina. Manifests no signs of congestive heart failure. 4. Hypertension. 5. Hyperlipidemia. RECOMMENDATIONS: Continue current cardiovascular regimen unchanged. If patient starts to manifest tendency for bradycardia, diltiazem or digoxin might be discontinued. cc: Jarvis Collins MD
[2019-02-22] MEDS: XARELTO PO SCH (17:50)
[2019-02-22] MEDS: FLOMAX PO SCH (21:58)
[2019-02-22] MEDS ORDERED: VANCOMYCIN 1.2 GM in NS 250 ML IV SCH (22:00)
[2019-02-23] MEDS: DUONEB (A & A) INH SCH ×2 (03:44→07:26)
[2019-02-23] MEDS: SYNTHROID PO SCH ×2 (05:58→06:00)
[2019-02-23 06:27] LABS: BASO# 0.02 X1000 (0.0-0.2); BASO% 0.3 % (0.0-0.8); EOS# 0.16 X1000 (0.0-0.7); EOS% 2.7 % (0.0-10.0); HEMATOCRIT 31.8 % (42.0-52.0); HEMOGLOBIN 10.3 g/dL (14.0-18.0); LYMPH# 1.07 X1000 (1.2-3.4); LYMPH% 18.1 % (20.5-51.1); MCH 30.6 PG (27-31); MCHC 32.4 g/dL (33-37); MCV 94.4 FL (81-99); MONO# 0.77 X1000 (0.11-0.59); MPV 9.9 FL (7.4-10.4); NEUT% 65.9 % (42.2-75.2); PLT 220 X1000 (130-400); RBC 3.37 XMIL (4.7-6.1); RDW 14.6 % (11.5-14.5); WBC 5.92 X1000 (4.8-10.8)
[2019-02-23 06:31] LABS: ALBUMIN 2.8 g/dL (3.5-5.0); CALCIUM 8.6 mg/dL (8.8-10.2); CREATININE 1.3 mg/dL (0.7-1.2); PHOSPHORUS 3.3 mg/dL (2.7-4.5); POTASSIUM 4.6 mmol/L (3.5-5.1)
[2019-02-23] MEDS: MUCOMYST 20% INH SCH (07:27)
[2019-02-23 07:35] VITALS: BP 120/95
[2019-02-23] MEDS: LANOXIN PO SCH (08:07)
[2019-02-23] MEDS: PROSCAR PO SCH ×2 (08:07→08:10)
[2019-02-23] MEDS: FERROUS SULFATE PO SCH (08:07)
[2019-02-23] MEDS: LOPRESSOR PO SCH (08:07)
[2019-02-23] MEDS: FOLIC ACID PO SCH (08:07)
[2019-02-23] MEDS: MIRALAX PO SCH (08:08)
[2019-02-23] MEDS: CARDIZEM CD PO SCH (08:08)
[2019-02-23] MEDS: LIPITOR PO SCH (08:08)
[2019-02-23] MEDS: MAXIPIME 1 GM in NS 50 ML IV SCH (08:08)
[2019-02-23] MEDS: COZAAR PO SCH (08:08)
[2019-02-23] MEDS: ZYLOPRIM PO SCH (09:31)
--- NOTE | 2019-02-23 16:18 | DISCHARGE SUMMARY ---
ADMISSION DATE: 02/18/2019 DISCHARGE DATE: 02/23/2019 CONSULTATIONS: 1. Dr. Jarvis Collins with Cardiology. PERTINENT PROCEDURES: 1. Echocardiogram showed an EF of 40 percent. Mitral regurg with mild mitral calcification. PA pressure of 60 to 65, suggesting moderate to severe hypertension. Akinesis and thinning at the basal and mid inferior lateral wall of the left ventricle. 2. Chest CT: Pulmonary emphysema, bilateral multilobar pneumonia, worse on the right. Bilateral small effusions with some degree of loculation on the left. Mild mediastinal lymphadenopathy that is reactive. DISCHARGE DIAGNOSES: 1. Chronic atrial fibrillation. Heart rate is better controlled on the current regimen followed by Cardiology. 2. Bilateral multilobar pneumonia. The patient had been on vancomycin and cefepime and switched to oral cefdinir. 3. Hypothyroidism. Continue with Synthroid. 4. Hyperlipidemia. Continue with statin. 5. Iron deficiency anemia. Continue with iron. 6. Hypertension. Blood pressure is controlled. Continue home regimen. HOSPITAL COURSE: Briefly, Mr. Woo is an 88-year-old male with past medical history of coronary artery bypass, chronic atrial fibrillation, hypertension, hyperlipidemia, and COPD who was admitted and treated for pneumonia. He was found to have atrial fibrillation with RVR despite his regimen for rate control. Cardiology was consulted. He was initiated on IV Cardizem and also I gently increased his metoprolol and I added a low-dose p.o. Cardizem to his regimen. He was able to come off the drip and I also made adjustments to his other rate control medications and he will be discharged back home today with p.o. antibiotics and follow up with Dr. Hasmukh Reynolds on 03/28/2019 as well as his primary care provider on March 02. VITAL SIGNS: Temperature is 98.5 degrees, heart rate 72, respirations 16, blood pressure 120/96, O2 is 100% on room air. DISCHARGE DIET: Healthy heart. DISCHARGE MEDICATIONS: 1. Lipitor 10 mg p.o. daily. 2. Colcrys 0.6 mg daily p.r.n. 3. Ferrous sulfate 325 mg p.o. daily. 4. Folic acid 5 mg p.o. daily. 5. Losartan potassium 25 mg p.o. daily. 6. Proscar 5 mg p.o. daily. 7. Xarelto 15 mg p.o. with supper. 8. Azithromycin 500 mg p.o. daily. 9. Cardizem CD 120 mg p.o. daily. 10. Cefdinir 300 mg p.o. b.i.d. 11. Flomax 0.4 mg p.o. b.i.d. 12. Digoxin 125 mcg p.o. daily. 13. Lopressor 50 mg p.o. b.i.d. 14. MiraLAX 17 g p.o. daily b.i.d. 15. Synthroid 50 mcg p.o. daily. FOLLOWUP: Mr. Woo is being discharged back home with self care. He is to continue on home medications as prescribed. He is to take all antibiotics as prescribed. He will follow up with Dr. Hasmukh Reynolds on March 28, as well as Dr. Kapil Marroquin on 03/02. He can return to the ED or call 911 for any worsening of symptoms. Dictated by CARLOTTA De La Torre for Larry Christianson MD cc: MD Hasmukh Mccarthy MD Brian R. James, MD
== END 2019-02-23 10:09 | disposition home health service (06) | DRG 308 ==
LOC: ED 11:19 → 3S 15:32 → 4N 02-21 22:46
PROVIDERS: ATTEND Internal Medicine
CPT/HCPCS: 71010; 71020; 71045; 71046; 71250; 80048; 80053; 80069; 80162; 81001; 83605; 83880; 84443; 84484; 85025; 87040; 87070; 87205; 89220; 93005; 93010; 93306; 94640; 94761; 94799; 96365; 96367; 96375; 97162; 99285; A9270; J0456; J0692; J0696; J3370; J7030; J7050; S0138